=== PATIENT | female | born 1965 | race Caucasian/White ===

== ENCOUNTER 2019-09-06 13:09 | Day surgery (SDC) | payer OTHER ==
[2019-09-06] MEDS ORDERED: Depo-Medrol 40 MG/ML IM ONE (13:10)
[2019-09-06] MEDS ORDERED: Xylocaine-Mpf 2% 5 Ml Vial IJ ONE (13:10)
[2019-09-06] MEDS ORDERED: Ketamine HCl 50 MG/ML ONE (14:02)
[2019-09-06] MEDS ORDERED: DIPRIVAN 200 MG/20 ML IV ONE (14:02)
[2019-09-06] MEDS ORDERED: Lactated Ringers 1,000 ML IV ONE (14:35)
--- NOTE | 2019-09-06 15:59 | XRAY ---
Indication: Bilateral L4-S1 MBB. Intraoperative fluoroscopy was provided for 9 seconds. Single digital spot image submitted for interpretation demonstrates posterior needle tips projecting over the expected course of the left and right L4-S1 nerve roots. Correlate with intraoperative findings/report.
--- NOTE | 2019-09-06 16:08 | XRAY ---
9 seconds fluoroscopy time in surgery for bilateral L4-S1 MBB.
== END 2019-09-06 14:47 | disposition home or self-care (01) ==
LOC: SDC-PAIN 13:09
PROVIDERS: ATTEND Psychiatry & Neurology Pain Medicine
DX: M47.816 Spondylosis without myelopathy or radiculopathy, lumbar region (principal); K21.9 Gastro-esophageal reflux disease without esophagitis; Z79.899 Other long term (current) drug therapy
CPT/HCPCS: 64493; 64494; 72020; 77002; 84703; J1030; J2704

== ENCOUNTER 2019-10-11 12:01 | Day surgery (SDC) | payer OTHER ==
[2019-10-11] MEDS ORDERED: Marcaine 0.5% SDV 10 ML IJ ONE (12:02)
[2019-10-11] MEDS ORDERED: Depo-Medrol 40 MG/ML IM ONE (12:02)
[2019-10-11] MEDS ORDERED: DIPRIVAN 200 MG/20 ML IV ONE (13:34)
[2019-10-11] MEDS ORDERED: Ketamine HCl 50 MG/ML ONE (13:34)
--- NOTE | 2019-10-11 14:49 | XRAY ---
Indication: Bilateral L4-S1 MBB. Intraoperative fluoroscopy was provided for 14 seconds. Single digital spot image submitted for interpretation demonstrates posterior needle tips projecting over the expected course of the left and right L4-S1 nerve roots. Correlate with intraoperative findings/report.
--- NOTE | 2019-10-11 14:51 | XRAY ---
14 seconds fluoroscopy time in surgery for bilateral L4-S1 MBB.
[2019-10-11] MEDS ORDERED: Lactated Ringers 1,000 ML IV ONE (15:18)
== END 2019-10-11 14:02 | disposition home or self-care (01) ==
LOC: SDC-PAIN 12:01
PROVIDERS: ATTEND Psychiatry & Neurology Pain Medicine
DX: M47.816 Spondylosis without myelopathy or radiculopathy, lumbar region (principal); K21.9 Gastro-esophageal reflux disease without esophagitis; Z79.899 Other long term (current) drug therapy
CPT/HCPCS: 64493; 64494; 72020; 77002; 84703; J1030; J2704

== ENCOUNTER 2019-11-29 10:39 | Day surgery (SDC) | payer OTHER ==
[2019-11-29] MEDS ORDERED: Xylocaine 1% Vial 30 ML PF IJ ONE (10:40)
[2019-11-29] MEDS ORDERED: Marcaine 0.5% SDV 10 ML IJ ONE (10:40)
[2019-11-29] MEDS ORDERED: Depo-Medrol 40 MG/ML IM ONE (10:40)
[2019-11-29] MEDS ORDERED: Ketamine HCl 50 MG/ML ONE (11:37)
[2019-11-29] MEDS ORDERED: DIPRIVAN 200 MG/20 ML IV ONE (11:37)
--- NOTE | 2019-11-29 13:09 | XRAY ---
Indication: Left L4-S1 RFA. Intraoperative fluoroscopy was provided for 14 seconds. 3 digital spot images submitted for interpretation demonstrates posterior needle tips projecting over the expected course of the left L4-S1 nerve roots. Correlate with intraoperative findings/report.
--- NOTE | 2019-11-29 13:32 | XRAY ---
14 seconds fluoroscopy time in surgery for left L4-S1 RFA.
[2019-11-29] MEDS ORDERED: Lactated Ringers 1,000 ML IV ONE (15:30)
== END 2019-11-29 12:05 | disposition home or self-care (01) ==
LOC: SDC-PAIN 10:39
PROVIDERS: ATTEND Psychiatry & Neurology Pain Medicine
DX: M47.816 Spondylosis without myelopathy or radiculopathy, lumbar region (principal); K21.9 Gastro-esophageal reflux disease without esophagitis; M19.90 Unspecified osteoarthritis, unspecified site; Z79.899 Other long term (current) drug therapy
CPT/HCPCS: 64635; 64636; 72100; 77002; 84703; J1030; J2001; J2704

== ENCOUNTER 2019-12-06 12:14 | Day surgery (SDC) | payer OTHER ==
[2019-12-06] MEDS ORDERED: Depo-Medrol 40 MG/ML IM ONE (12:15)
[2019-12-06] MEDS ORDERED: Marcaine 0.5% SDV 10 ML IJ ONE (12:15)
[2019-12-06] MEDS ORDERED: Xylocaine 1% Vial 30 ML PF IJ ONE (12:15)
[2019-12-06] MEDS ORDERED: Lactated Ringers 1,000 ML IV ONE (13:33)
--- NOTE | 2019-12-06 16:46 | XRAY ---
Indication: Right L4-S1 RFA. Intraoperative fluoroscopy was provided for 21 seconds. 3 digital spot images submitted for interpretation demonstrates posterior needle tips projecting over the expected course of the right L4-S1 nerve roots. Correlate with intraoperative findings/report.
--- NOTE | 2019-12-06 17:01 | XRAY ---
21 seconds fluoroscopy time in surgery for right L4-S1 RFA.
== END 2019-12-06 14:30 | disposition home or self-care (01) ==
LOC: SDC-PAIN 12:14
PROVIDERS: ATTEND Psychiatry & Neurology Pain Medicine
DX: M47.816 Spondylosis without myelopathy or radiculopathy, lumbar region (principal); K21.9 Gastro-esophageal reflux disease without esophagitis; Z79.899 Other long term (current) drug therapy
CPT/HCPCS: 64635; 64636; 72100; 77002; 84703; J1030; J2001

== ENCOUNTER 2022-01-07 11:34 | Day surgery (SDC) | payer OTHER ==
[~2022-01-07 11:34] MED LIST: DIPRIVAN 200 MG/20 ML IV ONE
[2022-01-07] MEDS ORDERED: DIPRIVAN 200 MG/20 ML IV ONE ×2 (14:20→14:21)
[2022-01-07] MEDS ORDERED: Versed 2 MG/2 ML Injection ONE (14:21)
[2022-01-07] MEDS ORDERED: Lactated Ringers 1,000 ML IV ONE (14:29)
--- NOTE | 2022-01-07 17:21 | XRAY ---
32 seconds fluoroscopy time in surgery for left L4-S1 RFA.
--- NOTE | 2022-01-07 17:24 | XRAY ---
Indication: Left L4-S1 RFA. Intraoperative fluoroscopy provided for 32 seconds. 3 digital spot image submitted for interpretation demonstrates posterior needle tips projecting over the expected left L4-S1 nerve roots. Correlate with intraoperative findings/report.
== END 2022-01-07 14:50 | disposition home or self-care (01) ==
LOC: SDC-PAIN 11:34
PROVIDERS: ATTEND Psychiatry & Neurology Pain Medicine
DX: M47.816 Spondylosis without myelopathy or radiculopathy, lumbar region (principal); Z79.899 Other long term (current) drug therapy
CPT/HCPCS: 64635; 64636; 72100; 77002; J2250; J2704

== ENCOUNTER 2022-01-08 12:51 | Day surgery (SDC) | payer OTHER ==
[~2022-01-08 12:51] MED LIST changes: +BUPIVACAINE 0.5% VIAL IJ ONE; -DIPRIVAN 200 MG/20 ML IV ONE; +Depo-Medrol 40 MG/ML IM ONE; +Xylocaine 1% Vial 30 ML PF IJ ONE
[2022-01-08] MEDS ORDERED: Lactated Ringers 1,000 ML IV ONE (14:30)
[2022-01-08] MEDS ORDERED: DIPRIVAN 200 MG/20 ML IV ONE ×2 (15:14→15:21)
--- NOTE | 2022-01-09 09:35 | XRAY ---
Indication: Right L4-S1 RFA. Intraoperative fluoroscopy provided for 29 seconds. 3 digital spot image submitted for interpretation demonstrates posterior needle tips projecting over the expected right L4-S1 nerve roots. Correlate with intraoperative findings/report.
--- NOTE | 2022-01-09 09:59 | XRAY ---
29 seconds fluoroscopy time in surgery for right L4-S1 RFA.
== END 2022-01-08 15:45 | disposition home or self-care (01) ==
LOC: SDC-PAIN 12:51
PROVIDERS: ATTEND Psychiatry & Neurology Pain Medicine
DX: M47.816 Spondylosis without myelopathy or radiculopathy, lumbar region (principal); Z79.899 Other long term (current) drug therapy
CPT/HCPCS: 64635; 64636; 72100; 77002; J1030; J2001; J2704